=== PATIENT | male | born 1995 | race Caucasian/White ===

== ENCOUNTER 2016-03-22 18:14 | Emergency (ER) | payer OTHER ==
[~2016-03-22] VITALS: Ht 175.3 cm; Wt 72.4 kg
[2016-03-22 18:18] VITALS: TEMP 36.8; Ht 175.3 cm; Wt 72.4 kg
--- NOTE | 2016-03-22 18:49 | EMERGENCY ROOM VISIT NOTE ---
History First contact with patient: 18:26 Chief Complaint: INFECTION Stated Complaint: REFERRED, FOLICULITIS, PREVIOUS STROKE Nursing Triage Summary: October he had a drain on the right side of his head from a stroke. Yesterday he felt liquid in the area and he checked with a tissue and it was "light red". Painful with touch. Denies fever. History of Present Illness The patient is a 20 year old male who presents to the Emergency Room with complaints of drainage to the scalp. 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 He had a drain placed for 3 weeks and it was removed in October. He has had daily headaches but overall is doing well. The patient states that last night he noticed a small area of drainage that was light red in color at the site of the drain. The patient states that he has been having headaches but that has been ongoing secondary to the CVA. The patient denies any fever. He denies any visual changes. He denies any other symptoms. The patient was transferred to [facility] and saw neurosurgery there. He eventually was sent to [place] and had gamma knife done. Review of Systems A 10 system review of systems was completed with positives and pertinent negatives listed in the HPI. Past Medical/Surgical History Intraventricular hemorrhage Social History Smoking Status: Never Smoker Alcohol Use: none Drug Use: none Marital Status: in relationship Occupation Status: [employer] student Current/Historical Medications Scheduled Amoxicillin & Pot Clavulanate (Augmentin 875-125 mg), 1 TAB PO BID Mupirocin 2% (Bactroban 2%), 1 APPLN EXT TID Tolterodine Tartrate (Tolterodine Tartrate), 2 MG PO BID Miscellaneous Medications Acetamin/Butalbital/Caffeine (Fioricet), 1 TAB PO Allergies Coded Allergies: No Known Allergies (Unverified , 03/22/16) Physical Exam Vital Signs Date Time Temp Pulse Resp B/P Pulse Ox O2 Delivery O2 Flow Rate FiO2 03/22/16 20:47 82 18 128/84 97 03/22/16 18:18 36.8 86 20 133/91 96 Room Air Physical Exam VITALS: Vitals are noted on the nurse's note and reviewed by myself. Vital signs stable. The patient is afebrile. GENERAL: This is a 20-year-old male, in no acute distress, nondiaphoretic, well- developed well-nourished. SKIN: There is a small area of erythema and tenderness to the right anterior scalp which measures approximately 1 cm in diameter. This is at the site of previous drain/scar. There does appear to be a small pustule. I was able to express a small amount of purulent debris and a culture was sent. There is no tenting of the skin. Capillary reflex less than 2 seconds. HEAD: Normocephalic atraumatic. EARS: The external ears are normal in appearance. EYES: Pupils equal round and reactive to light and accommodation. Conjunctivae without injection, sclerae without icterus. Extraocular movements intact. NOSE: Patent, turbinates without inflammation or discharge. MOUTH: Mucous membranes moist. Tonsils are not enlarged. Pharynx without erythema or exudate. Uvula midline. Airway patent. Tongue does not deviate. NECK: Supple without nuchal rigidity. No JVD. HEART: Regular rate and rhythm without murmurs gallops or rubs. LUNGS: Clear to auscultation bilaterally without wheezes, rales or rhonchi. No retractions or accessory muscle use. MUSCULOSKELETAL: No muscle atrophy, erythema, or edema noted. Full range of motion in all extremities. Normal gait. Strength 5/5 throughout. NEURO: Patient was alert and oriented to person place and time.No focal neurological deficits. Medical Decision & Procedures Medications Administered Medications (Trade) Dose Ordered Sig/Jane Route Start Time Stop Time Status Last Admin Dose Admin Amoxicillin/ Clavulanate Potassium (Augmentin 875MG Home Pack) 1 homepack UD ONCE PO 03/22/16 20:30 03/22/16 20:31 DC 03/22/16 20:30 1 HOMEPACK ED Course The patient was seen and examined. Previous visits were reviewed. CT scan does not reveal any obvious fluid collection or communication through the skull. The patient has a very superficial pustule. A culture was obtained. He is afebrile and nontoxic in appearance. His surgery and drainage tube were removed approximately 5 months ago. Given the nature of the patient's history and the surgery I did discuss the case with [facility] neurosurgery. He recommends follow-up with Dr. Hernandez within the week. The patient will be placed on Augmentin and given a prescription for Bactroban. He should return immediately with any fevers, swelling, drainage of pus or generalized worsening symptoms. The patient was also seen and examined by who agrees with the assessment and treatment plan. Medical Decision The differential diagnosis includes sepsis, abscess, folliculitis, among others Impression Primary Impression: Infection of scalp Departure Information Dispostion Home / Self-Care Condition GOOD Prescriptions Amoxicillin & Pot Clavulanate (Augmentin 875-125 mg) 1 Tab Tab 1 TAB PO BID for 7 Days, #14 TAB Prov: Zee Souza PA-C 03/22/16 Mupirocin 2% (Bactroban 2%) 30 Gm Cr 1 APPLN EXT TID for 7 Days, #1 TUBE Prov: Zee Souza PA-C 03/22/16 Referrals Aide Altman D.OMacho (PCP) Patient Instructions My [facility] Additional Instructions Augmentin every 12 hours for 7 days Apply the ointment every 8 hours for [address] Carpenter's office for a follow-up and recheck within 1 week Return to the emergency department with fevers, worsening swelling, worsening pain
[2016-03-22] MEDS ORDERED: TOLT2TAB9 PO (19:14)
[2016-03-22] MEDS ORDERED: FRCT/ PO (19:14)
--- NOTE | 2016-03-22 19:18 | DIAGNOSTIC IMAGING REPORT ---
HEAD CT NONCONTRAST CT DOSE: 580.48 mGy.cm HISTORY: scalp pustule at site of previous drain TECHNIQUE: Multiaxial CT images of the head were performed without the use of intravenous contrast. Comparison: None. Findings: The paranasal sinuses and mastoid air cells are clear. The intraventricular hemorrhage previously described has component resolved. There is a small caliber mildred hole right frontal bone. At the site of what is most likely a prior drainage catheter. There is a very tiny ossific fragment adjacent to the inner table. No extracranial soft tissue mass is appreciated. Cortical margins are intact. Impression: 1. Postoperative mildred hole right frontal bone with no evidence for an associated soft tissue mass. 2. Improved appearance to the brain with this study now essentially negative. Previous described intraventricular hemorrhage has resolved. Electronically signed by: Michele Leonard M.D. 03/22/2016 7:17 PM Dictated Date/Time: 03/22/2016 7:14 PM
--- NOTE | 2016-03-22 20:28 | EMERGENCY ROOM VISIT NOTE ---
ED Visit Note First contact with patient: 18:26 This Patient was discussed with the physician Hhas, Giselle Souza PA-C. The pertinent historical and physical exam findings were confirmed. I agree with the studies ordered and with the interpretations of these studies. I agree with the disposition and care plan.
[2016-03-22] MEDS ORDERED: AMOXICIL/CLAVU 875MG HOME PACK PO ONE (20:30)
[2016-03-22] MEDS ORDERED: BCTCR/30 EXT (20:31)
[2016-03-22] MEDS ORDERED: AMOX875T PO (20:31)
[2016-03-22 20:47] VITALS: BP 128/84; PULSE 82; O2SAT 97
== END 2016-03-22 21:29 | disposition home or self-care (01) ==
LOC: C.EDB 18:15 → C.EDD 21:29
DX: L08.9 Local infection of the skin and subcutaneous tissue, unspecified (principal)